=== PATIENT | male | born 1930 | race Caucasian/White ===

== ENCOUNTER → 2017-01-24 | Outpatient (CLI) | payer OTHER ==
[~2017-01-24] MED LIST: ATEN50TA; HYDR12.56; TAM04C PO
== END | disposition home or self-care (01) ==
LOC: XYW 09:42
PROVIDERS: ATTEND Family Medicine
DX: I25.10 Atherosclerotic heart disease of native coronary artery without angina pectoris (principal); I10 Essential (primary) hypertension
CPT/HCPCS: 93886

== ENCOUNTER → 2017-03-20 | Outpatient (CLI) | payer OTHER ==
[2017-03-20 08:50] LABS: Albumin 3.9 g/dL (3.4-5.0); BUN/Creatinine Ratio 22.6; Bilirubin, Total 0.7 mg/dL (0.2-1.0); Calcium 8.9 mg/dL (8.5-10.1); Potassium 3.9 mmol/L (3.5-5.1); Total Protein 7.6 g/dL (6.4-8.2)
[2017-03-20 09:07] LABS: Urine Bilirubin Negative (Negative); Urine Blood 2+ /uL (Negative); Urine Color Yellow (Yellow); Urine Glucose Normal (Normal); Urine Ketone Negative (Negative); Urine Mucus FEW (None Seen); Urine Nitrite Negative (Negative); Urine RBC 38 /hpf (0 - 3); Urine Urobilinogen Normal (Negative); Urine WBC Clumps PRESENT /hpf (None Seen)
== END | disposition home or self-care (01) ==
LOC: LAB 07:12
PROVIDERS: ATTEND Internal Medicine
DX: I12.9 Hypertensive chronic kidney disease with stage 1 through stage 4 chronic kidney disease, or unspecified chronic kidney disease (principal); N18.3 Chronic kidney disease, stage 3 (moderate); Z68.28 Body mass index [BMI] 28.0-28.9, adult; Z79.899 Other long term (current) drug therapy
CPT/HCPCS: 36415; 80053; 80061; 81001; 83036; 84153; 84443; 86141

== ENCOUNTER 2018-07-15 08:03 | Day surgery (SDC) | payer OTHER ==
[2018-07-11 09:57] LABS: Basophils # (auto) 0 uL; Basophils % (auto) 0.8 % (0.0-2.0); Eosinophils # (auto) 0.1 uL; Eosinophils % (auto) 2.6 % (0.0-7.0); Hematocrit 39.6 % (41.0-53.0); Hemoglobin 13.1 g/dL (13.5-17.5); Lymphocytes # (auto) 0.8 uL; Lymphocytes % (auto) 16.1 % (10.0-50.0); Mean Corpuscular Hemoglobin 29.4 pg (28.0-32.0); Mean Corpuscular Hgb Conc. 33.1 g/dL (32.0-36.0); Monocytes # (auto) 0.4 uL; Monocytes % (auto) 8.5 % (0.0-12.0); Neutrophils # (auto) 3.7 uL; Platelet Count (auto) 217 10^3/uL (140-450); Red Blood Cells 4.44 10^6/uL (4.5-5.90); White Blood Cell 5.1 10^3/uL (4.4-10.8)
[2018-07-11 14:23] LABS: Partial Thromboplastin Time 28.9 sec (23.78-33.04); Prothrombin Time 10.7 sec (9.27-12.13)
[~2018-07-15] VITALS: Ht 177.8 cm; Wt 86.2 kg
[~2018-07-15 08:03] MED LIST changes: +ATEN50TA PO; +DICL1GEL26 TOP; -HYDR12.56; +HYDR12.56 PO
[2018-07-15] MEDS ORDERED: SODIUM CHLORIDE LOCK 10 ML ONE (08:50)
[2018-07-15] MEDS ORDERED: LIDOCAINE VISCOUS 2% 15ML UD ONE (08:50)
[2018-07-15] MEDS ORDERED: NALOXONE HCL 0.4 MG/ML VIAL ONE (08:50)
[2018-07-15] MEDS ORDERED: FLUMAZENIL 0.1 MG/ML INJ 10ML MDV IV ONE (08:50)
[2018-07-15] MEDS ORDERED: diphenhdrAMINE HCL 50 MG/1 ML VL ONE (08:51)
[2018-07-15] MEDS ORDERED: MIDAZOLAM HCL 5 MG/ML-1ML VIAL ONE (08:51)
[2018-07-15] MEDS ORDERED: fentaNYL CITRATE 100 MCG/2 ML VL ONE (08:51)
[2018-07-15 09:59] VITALS: BP 142/68
== END 2018-07-15 10:10 | disposition home or self-care (01) ==
LOC: GI 08:03
PROVIDERS: ATTEND Internal Medicine Gastroenterology
DX: K29.60 Other gastritis without bleeding (principal); I10 Essential (primary) hypertension; Z87.442 Personal history of urinary calculi; Z88.8 Allergy status to other drugs, medicaments and biological substances; Z88.1 Allergy status to other antibiotic agents; Z88.2 Allergy status to sulfonamides; Z68.27 Body mass index [BMI] 27.0-27.9, adult; Z79.899 Other long term (current) drug therapy
CPT/HCPCS: 36415; 43239; 85025; 85610; 85730; A6257; J2250; J3010; J7030

== ENCOUNTER → 2018-10-03 | Outpatient (CLI) | payer OTHER ==
[~2018-10-03] MED LIST changes: +ACET-1158 PO; -ATEN50TA; -ATEN50TA PO; +BACL10TA PO; -DICL1GEL26 TOP; +HCTZ25T PO; -HYDR12.56 PO; +IBUP-1678 PO; +METO25TA62 PO; +MULT-228 PO; +PANT40T PO
== END | disposition home or self-care (01) ==
LOC: XYW 09:06
PROVIDERS: ATTEND Family Medicine
DX: R55 Syncope and collapse (principal); R42 Dizziness and giddiness
CPT/HCPCS: 93886

== ENCOUNTER → 2018-11-11 | Outpatient (CLI) | payer OTHER ==
[2018-11-11 08:44] LABS: Basophils # (auto) 0 uL; Basophils % (auto) 0.6 % (0.0-2.0); Eosinophils # (auto) 0.2 uL; Eosinophils % (auto) 4.3 % (0.0-7.0); Hematocrit 40.4 % (41.0-53.0); Hemoglobin 13.4 g/dL (13.5-17.5); Lymphocytes # (auto) 1.2 uL; Lymphocytes % (auto) 25.9 % (10.0-50.0); Mean Corpuscular Hemoglobin 29.4 pg (28.0-32.0); Mean Corpuscular Hgb Conc. 33.1 g/dL (32.0-36.0); Mean Corpuscular Volume 88.8 fL (80.0-100.0); Monocytes # (auto) 0.4 uL; Monocytes % (auto) 9.4 % (0.0-12.0); Neutrophils # (auto) 2.8 uL; Neutrophils % (auto) 59.8 % (37.0-80.0); Nucleated Red Blood Cells % 0.1 %; Platelet Count (auto) 178 10^3/uL (140-450); Red Blood Cells 4.54 10^6/uL (4.5-5.90); Red Cell Distribution Width 15.2 % (11.8-14.3); White Blood Cell 4.7 10^3/uL (4.4-10.8)
[2018-11-11 09:05] LABS: Albumin 3.4 g/dL (3.4-5.0); Calcium 8.4 mg/dL (8.5-10.1); Magnesium 1.9 mg/dL (1.6-2.6); Potassium 4.3 mmol/L (3.5-5.1)
[2018-11-11 09:10] LABS: BUN/Creatinine Ratio 17.3; Bilirubin, Total 0.6 mg/dL (0.2-1.0); Total Protein 6.8 g/dL (6.4-8.2)
[2018-11-11 09:13] LABS: Free T4 (Free Thyroxine) 0.96 ng/dL (0.89-1.76)
[2018-11-11 09:14] LABS: Follicle Stimulating Hormone 10.76 IU/L (1.4-18.1)
== END | disposition home or self-care (01) ==
LOC: LAB 07:40
PROVIDERS: ATTEND Internal Medicine
DX: I10 Essential (primary) hypertension (principal)
CPT/HCPCS: 36415; 80053; 80061; 82607; 83001; 83735; 84402; 84403; 84439; 84443; 85025

== ENCOUNTER → 2018-12-04 | Outpatient (CLI) | payer OTHER ==
[2018-12-04 10:28] LABS: Folate (Folic Acid) 13.64 ng/mL (5.38-24)
== END | disposition home or self-care (01) ==
LOC: LAB 09:05
PROVIDERS: ATTEND Nurse Practitioner
DX: E53.8 Deficiency of other specified B group vitamins (principal); R79.89 Other specified abnormal findings of blood chemistry
CPT/HCPCS: 36415; 82607; 82746; 84403

== ENCOUNTER → 2019-02-18 | Outpatient (CLI) | payer OTHER | END | disposition home or self-care (01) | LOC: XY 07:51 | PROVIDERS: ATTEND Internal Medicine | DX: I70.211 Atherosclerosis of native arteries of extremities with intermittent claudication, right leg (principal); Z87.891 Personal history of nicotine dependence; Z88.1 Allergy status to other antibiotic agents; Z88.8 Allergy status to other drugs, medicaments and biological substances; Z98.890 Other specified postprocedural states; Z83.3 Family history of diabetes mellitus; Z82.61 Family history of arthritis; Z82.49 Family history of ischemic heart disease and other diseases of the circulatory system; Z80.3 Family history of malignant neoplasm of breast; Z82.3 Family history of stroke; Z80.6 Family history of leukemia | CPT/HCPCS: 93925 ==

== ENCOUNTER → 2019-03-12 | Outpatient (CLI) | payer OTHER ==
[~2019-03-12] VITALS: Ht 177.8 cm; Wt 86.2 kg
[~2019-03-12] MED LIST changes: +ADENOSINE 72 MG in GIVE UN-DILUTED 0 ML IV STA
== END | disposition home or self-care (01) ==
LOC: XY 07:00
PROVIDERS: ATTEND Internal Medicine
DX: I08.3 Combined rheumatic disorders of mitral, aortic and tricuspid valves (principal); I12.9 Hypertensive chronic kidney disease with stage 1 through stage 4 chronic kidney disease, or unspecified chronic kidney disease; N18.3 Chronic kidney disease, stage 3 (moderate)
CPT/HCPCS: 78452; 93017; 93306; A9500; J0153

== ENCOUNTER → 2019-05-28 | Outpatient (CLI) | payer OTHER ==
[~2019-05-28] MED LIST changes: -ADENOSINE 72 MG in GIVE UN-DILUTED 0 ML IV STA; -METO25TA62 PO; +METO25TA93 PO
[2019-05-28 08:30] LABS: Basophils # (auto) 0 uL; Basophils % (auto) 1.1 % (0.0-2.0); Eosinophils # (auto) 0.1 uL; Eosinophils % (auto) 3.8 % (0.0-7.0); Hematocrit 40.5 % (41.0-53.0); Hemoglobin 13.6 g/dL (13.5-17.5); Lymphocytes % (auto) 26.9 % (10.0-50.0); Mean Corpuscular Hemoglobin 30.3 pg (28.0-32.0); Mean Corpuscular Hgb Conc. 33.6 g/dL (32.0-36.0); Mean Corpuscular Volume 90.2 fL (80.0-100.0); Monocytes # (auto) 0.4 uL; Neutrophils % (auto) 56.2 % (37.0-80.0); Platelet Count (auto) 166 10^3/uL (140-450); Red Blood Cells 4.49 10^6/uL (4.5-5.90); Red Cell Distribution Width 14.8 % (11.8-14.3); White Blood Cell 3.6 10^3/uL (4.4-10.8)
[2019-05-28 08:47] LABS: Urine Bacteria MOD /hpf (None Seen); Urine Blood 2+ /uL (Negative); Urine Specific Gravity 1.018 (1.001-1.035); Urine WBC 3889 /hpf (0 - 3); Urine WBC Clumps PRESENT /hpf (None Seen)
[2019-05-28 09:05] LABS: Potassium 4.3 mmol/L (3.5-5.1)
[2019-05-28 09:15] LABS: Albumin 3.6 g/dL (3.4-5.0); BUN/Creatinine Ratio 19.6; Bilirubin, Total 0.6 mg/dL (0.2-1.0); Calcium 9.2 mg/dL (8.5-10.1); Total Protein 7.2 g/dL (6.4-8.2)
== END | disposition home or self-care (01) ==
LOC: LAB 07:55
PROVIDERS: ATTEND Nurse Practitioner
DX: Z00.00 Encounter for general adult medical examination without abnormal findings (principal); E78.5 Hyperlipidemia, unspecified
CPT/HCPCS: 36415; 80053; 80061; 81001; 84443; 85025

== ENCOUNTER → 2019-10-16 | Outpatient (CLI) | payer MEDICARE | END | disposition home or self-care (01) | LOC: XY 10:34 | PROVIDERS: ATTEND Internal Medicine | DX: I70.203 Unspecified atherosclerosis of native arteries of extremities, bilateral legs (principal); I10 Essential (primary) hypertension; M71.22 Synovial cyst of popliteal space [Baker], left knee | CPT/HCPCS: 93925 ==

== ENCOUNTER 2020-01-14 07:46 | Inpatient (IN) | payer OTHER ==
[2020-01-08 10:20] LABS: Basophils # (auto) 0 10 ^3/uL (0-0.2); Basophils % (auto) 0.5 % (0.0-2.0); Eosinophils # (auto) 0.1 10 ^3/uL (0-0.8); Hematocrit 37.5 % (41.0-53.0); Hemoglobin 12.8 g/dL (13.5-17.5); Lymphocytes # (auto) 0.8 10 ^3/uL (0.4-5.4); Lymphocytes % (auto) 12.7 % (10.0-50.0); Mean Corpuscular Hgb Conc. 34.2 g/dL (32.0-36.0); Mean Corpuscular Volume 90.4 fL (80.0-100.0); Monocytes # (auto) 0.6 10 ^3/uL (0-1.3); Monocytes % (auto) 9.3 % (0.0-12.0); Neutrophils # (auto) 4.7 10 ^3/uL (1.6-8.6); Neutrophils % (auto) 76.5 % (37.0-80.0); Nucleated Red Blood Cells % 0.1 %; Platelet Count (auto) 153 10^3/uL (140-450); Red Blood Cells 4.15 10^6/uL (4.5-5.90); Red Cell Distribution Width 14.4 % (11.8-14.3); White Blood Cell 6.2 10^3/uL (4.4-10.8)
[2020-01-08 10:30] LABS: Albumin 3.7 g/dL (3.4-5.0); Calcium 8.7 mg/dL (8.5-10.1); Potassium 4.2 mmol/L (3.5-5.1)
[2020-01-08 10:32] LABS: INR 1.07 (0.9-1.15); Partial Thromboplastin Time 28.1 sec (23.0-31.2)
[2020-01-08 10:34] LABS: BUN/Creatinine Ratio 18.5; Bilirubin, Total 0.8 mg/dL (0.2-1.0)
[~2020-01-14] VITALS: Ht 180.3 cm; Wt 86.3 kg
[~2020-01-14 07:46] MED LIST changes: +ATO40T PO; -BACL10TA PO; -HCTZ25T PO; +HYDR12.56 PO; +MET50T PO; -METO25TA93 PO; -PANT40T PO; +PANT40TA2 PO
[2020-01-14] MEDS ORDERED: IODIXANOL 320MG/ML 100ML BTL IV ONE ×5 (08:59→15:45)
[2020-01-14] MEDS ORDERED: LIDOCAINE 2%HCL (LOCAL ANESTH.) INJ 20ML MDV ONE ×2 (08:59→14:40)
[2020-01-14] MEDS ORDERED: VERAPAMIL 2.5MG/ML INJ 2ML VIAL IV ONE (09:58)
[2020-01-14] MEDS ORDERED: ANGIOMAX 250 MG VIAL IV ONE ×3 (09:58→15:35)
[2020-01-14] MEDS ORDERED: fentaNYL CITRATE 100 MCG/2 ML VL ONE ×2 (09:58→14:40)
[2020-01-14] MEDS ORDERED: HEPARIN SODIUM (PORCINE) 5000 UNITS/ML 1ML VIAL ONE (09:59)
[2020-01-14] MEDS ORDERED: MIDAZOLAM HCL 1MG/1ML-2 ML VIAL ONE ×2 (09:59→14:40)
[2020-01-14] MEDS ORDERED: SODIUM CHL 0.9% 50 ML ONE ×3 (09:59→15:35)
[2020-01-14] MEDS ORDERED: MORPHINE SULF INJ 2 MG/ML SYRINGE 1ML IV PRN (11:15)
[2020-01-14] MEDS ORDERED: ONDANSETRON HCL 4 MG/2 ML VIAL IV PRN (11:15)
[2020-01-14] MEDS ORDERED: NITROGLYCERIN 0.4 MG SL TAB SL PRN (11:15)
[2020-01-14] MEDS ORDERED: diphenhdrAMINE HCL 50 MG/1 ML VL ONE (14:39)
[2020-01-14] MEDS ORDERED: TICAGRELOR 90 MG TAB ONE (16:17)
[2020-01-14] MEDS ORDERED: ACETAMINOPHEN 500 MG TAB PO PRN ×2 (16:45→17:00)
[2020-01-14] MEDS ORDERED: IBUPROFEN 400 MG TAB PO PRN (17:00)
[2020-01-14 17:42] VITALS: BP 140/78
[2020-01-14] MEDS ORDERED: TAMSULOSIN HYDROCHLORIDE 0.4 MG CAP PO SCH (18:00)
[2020-01-14 20:00] VITALS: BP 131/69
[2020-01-14 22:00] VITALS: BP 131/69
[2020-01-14] MEDS ORDERED: ATORVASTATIN 20 MG TAB PO SCH (22:00)
[2020-01-14] MEDS ORDERED: FAMOTIDINE 20 MG TAB PO SCH (22:00)
[2020-01-15 04:59] VITALS: BP 162/85
[2020-01-15] MEDS ORDERED: METOPROLOL TARTRATE 50 MG TAB PO SCH (07:00)
[2020-01-15] MEDS ORDERED: MULTIPLE VITAMIN TAB PO SCH (10:00)
[2020-01-15] MEDS ORDERED: HCTZ 25 MG TAB PO SCH (10:00)
[2020-01-15] MEDS ORDERED: TICAGRELOR 90 MG TAB PO SCH (10:00)
[2020-01-15] MEDS ORDERED: LISINOPRIL 5 MG TAB PO ONE (10:30)
[2020-01-15] MEDS ORDERED: TICA90TA PO (10:32)
[2020-01-15] MEDS ORDERED: LISI-275 PO (10:46)
[2020-01-15 15:25] VITALS: BP 135/75
[2020-01-15] MEDS ORDERED: TAMS0.4C36 PO (15:54)
[2020-01-16] MEDS ORDERED: LISINOPRIL 5 MG TAB PO SCH (10:00)
== END 2020-01-15 15:50 | disposition home or self-care (01) | DRG 246 ==
LOC: CATH 07:46 → TELE-CENTR 07:47
PROVIDERS: ADMIT Internal Medicine; ATTEND Internal Medicine
PROC: 027137Z Dilation of Coronary Artery, Two Arteries with Four or More Drug-eluting Intraluminal Devices, Percutaneous Approach (ICD-10-PCS; principal; 2020-01-14)
PROC: 4A023N7 Measurement of Cardiac Sampling and Pressure, Left Heart, Percutaneous Approach (ICD-10-PCS; 2020-01-14)
PROC: B211YZZ Fluoroscopy of Multiple Coronary Arteries using Other Contrast (ICD-10-PCS; 2020-01-14)
PROC: B215YZZ Fluoroscopy of Left Heart using Other Contrast (ICD-10-PCS; 2020-01-14)
DX: T82.855A Stenosis of coronary artery stent, initial encounter (principal); N40.0 Benign prostatic hyperplasia without lower urinary tract symptoms; I25.10 Atherosclerotic heart disease of native coronary artery without angina pectoris; E78.5 Hyperlipidemia, unspecified; I10 Essential (primary) hypertension; Z20.828 Contact with and (suspected) exposure to other viral communicable diseases; Y84.0 Cardiac catheterization as the cause of abnormal reaction of the patient, or of later complication, without mention of misadventure at the time of the procedure; Z88.1 Allergy status to other antibiotic agents; Z88.2 Allergy status to sulfonamides; Z88.8 Allergy status to other drugs, medicaments and biological substances; Y92.89 Other specified places as the place of occurrence of the external cause; Z87.891 Personal history of nicotine dependence; Z88.5 Allergy status to narcotic agent
CPT/HCPCS: 36415; 80053; 82565; 85025; 85610; 85730; 99152; 99153; C1874; C1887; G0378; J2250; Q9967

== ENCOUNTER → 2020-01-22 | Outpatient (CLI) | payer OTHER ==
[~2020-01-22] MED LIST changes: +LISI-275 PO; +TICA90TA PO
[2020-01-22 09:58] LABS: BUN/Creatinine Ratio 20.3; Potassium 3.8 mmol/L (3.5-5.1)
== END | disposition home or self-care (01) ==
LOC: LAB 09:30
PROVIDERS: ATTEND Internal Medicine
DX: I10 Essential (primary) hypertension (principal)
CPT/HCPCS: 36415; 80048

== ENCOUNTER → 2020-02-12 | Outpatient (CLI) | payer OTHER | END | disposition home or self-care (01) | LOC: XY 16:27 | PROVIDERS: ATTEND Internal Medicine | DX: R42 Dizziness and giddiness (principal) | CPT/HCPCS: 93886 ==

== ENCOUNTER 2020-03-16 06:53 | Emergency (ER) | payer OTHER ==
[~2020-03-16] VITALS: Ht 177.8 cm; Wt 81.6 kg
[2020-03-16] MEDS ORDERED: ACETAMINOPHEN 500 MG TAB PO ONE (07:45)
[2020-03-16] MEDS ORDERED: METHOCARBAMOL 500 MG TAB PO ONE (07:45)
[2020-03-16] MEDS ORDERED: methylPREDNISolone SOD SUCC 125 MG/2 ML VL IM ONE (07:45)
[2020-03-16 08:56] VITALS: BP 165/65
== END 2020-03-16 09:13 | disposition home or self-care (01) ==
LOC: ER 06:53
DX: M25.561 Pain in right knee (principal); M25.562 Pain in left knee; M54.5 Low back pain; I10 Essential (primary) hypertension; Z87.891 Personal history of nicotine dependence; Z79.899 Other long term (current) drug therapy; Z88.1 Allergy status to other antibiotic agents; Z88.2 Allergy status to sulfonamides; Z88.5 Allergy status to narcotic agent; W19.XXXA Unspecified fall, initial encounter; Y93.89 Activity, other specified; Y92.89 Other specified places as the place of occurrence of the external cause; Y99.8 Other external cause status
CPT/HCPCS: 72100; 73562; 96372; 99284; J2930

== ENCOUNTER → 2020-04-02 | Outpatient (CLI) | payer OTHER ==
[2020-04-02 10:25] LABS: Potassium 4.3 mmol/L (3.5-5.1)
== END | disposition home or self-care (01) ==
LOC: LAB 09:53
PROVIDERS: ATTEND Student in an Organized Health Care Education/Training Program
DX: I10 Essential (primary) hypertension (principal); R73.03 Prediabetes; N17.9 Acute kidney failure, unspecified; E03.9 Hypothyroidism, unspecified
CPT/HCPCS: 36415; 80048; 83036; 84443

== ENCOUNTER 2020-04-09 12:33 | Inpatient (IN) | payer OTHER ==
[~2020-04-09] VITALS: Ht 177.8 cm; Wt 76.3 kg
[2020-04-09 13:52] LABS: Basophils # (auto) 0 10 ^3/uL (0-0.2); Basophils % (auto) 0.2 % (0.0-2.0); Eosinophils # (auto) 0 10 ^3/uL (0-0.8); Eosinophils % (auto) 0.1 % (0.0-7.0); Hematocrit 37.8 % (41.0-53.0); Hemoglobin 13.1 g/dL (13.5-17.5); Lymphocytes # (auto) 0.4 10 ^3/uL (0.4-5.4); Lymphocytes % (auto) 16.5 % (10.0-50.0); Mean Corpuscular Hemoglobin 30.6 pg (28.0-32.0); Mean Corpuscular Hgb Conc. 34.6 g/dL (32.0-36.0); Mean Corpuscular Volume 88.4 fL (80.0-100.0); Monocytes # (auto) 0.4 10 ^3/uL (0-1.3); Monocytes % (auto) 14.5 % (0.0-12.0); Neutrophils # (auto) 1.7 10 ^3/uL (1.6-8.6); Neutrophils % (auto) 68.7 % (37.0-80.0); Nucleated Red Blood Cells % 0.5 %; Platelet Count (auto) 142 10^3/uL (140-450); Red Blood Cells 4.27 10^6/uL (4.5-5.90); Red Cell Distribution Width 14.7 % (11.8-14.3); White Blood Cell 2.5 10^3/uL (4.4-10.8)
[2020-04-09 14:05] LABS: INR 1.05 (0.9-1.15); Partial Thromboplastin Time 30.8 sec (23.0-31.2)
[2020-04-09 14:12] LABS: Albumin 3.2 g/dL (3.4-5.0); BUN/Creatinine Ratio 26.6; Calcium 8.6 mg/dL (8.5-10.1); Potassium 3.9 mmol/L (3.5-5.1)
[2020-04-09 14:16] LABS: Bilirubin, Total 0.6 mg/dL (0.2-1.0); Total Protein 7.6 g/dL (6.4-8.2)
[2020-04-09] MEDS ORDERED: AZITHROMYCIN 500MG/ 250ML 250 ML IV ONE (16:00)
[2020-04-09] MEDS ORDERED: SODIUM CHLORIDE 0.9% 1,000 ML IVB ONE (16:00)
[2020-04-09] MEDS ORDERED: ZINC SULFATE 220mg CAP or TAB PO ONE (16:00)
[2020-04-09] MEDS ORDERED: DexAMETHasone SOD PHOS 10MG/1ML VIAL INJ IV ONE (16:00)
[2020-04-09] MEDS ORDERED: MORPHINE SULF INJ 2 MG/ML SYRINGE 1ML IV PRN ×3 (17:45→18:30)
[2020-04-09] MEDS ORDERED: NITROGLYCERIN 0.4 MG SL TAB SL PRN ×2 (17:45→18:30)
[2020-04-09] MEDS ORDERED: CEFEPIME 1 GM in SODIUM CHL 0.9% 50 ML IV ONE (18:30)
[2020-04-09] MEDS ORDERED: ATORVASTATIN 20 MG TAB PO ONE (18:30)
[2020-04-09] MEDS ORDERED: ALUM & MAG HYDROX-SIMETH LIQ(MAALOX) 30 ML PO PRN (18:30)
[2020-04-09] MEDS ORDERED: DOCUSATE SOD 100 MG CAP PO PRN (18:30)
[2020-04-09] MEDS ORDERED: REMDESIVIR PER PHARMACY 0 ML IV SCH (18:30)
[2020-04-09] MEDS ORDERED: HYDROcodone-ACET 5/325MG TAB PO PRN (18:30)
[2020-04-09] MEDS ORDERED: METOPROLOL SUCCINATE XL 50 MG TAB PO ONE (18:45)
[2020-04-09] MEDS ORDERED: SODIUM CHLORIDE 0.9% 1,000 ML IV SCH (18:45)
[2020-04-09 19:18] LABS: Calcium 8.6 mg/dL (8.5-10.1); Magnesium 1.8 mg/dL (1.6-2.6); Potassium 3.9 mmol/L (3.5-5.1)
[2020-04-09 19:22] LABS: Bilirubin, Total 0.5 mg/dL (0.2-1.0); Total Protein 7.7 g/dL (6.4-8.2)
[2020-04-09 19:23] LABS: Cholesterol 138 mg/dL (< 200); Triglycerides 144 mg/dL (< 150)
[2020-04-09 19:26] LABS: HDL Cholesterol 37 mg/dL (40-59); LDL Cholesterol 75 mg/dL (< 100)
[2020-04-09 19:49] LABS: BUN/Creatinine Ratio 28.1; CRP High Sensitivity 7.56 mg/dL (< 0.3)
[2020-04-10] MEDS: ENOXAPARIN SOD 40 MG/0.4 ML SYRINGE SC SCH ×3 (01:24→22:20)
[2020-04-10] MEDS: TICAGRELOR 90 MG TAB PO SCH ×3 (01:24→22:20)
[2020-04-10] MEDS: SUCRALFATE 1 GM/10 ML ORAL SUSP PO SCH ×5 (01:24→22:20)
[2020-04-10] MEDS: FAMOTIDINE (10MG/ML) 2ML VL IV SCH ×2 (01:24→10:00)
[2020-04-10] MEDS: ACETAMINOPHEN 500 MG TAB PO PRN ×2 (03:14→11:24)
[2020-04-10] MEDS: MORPHINE SULF INJ 2 MG/ML SYRINGE 1ML IV PRN (06:06)
[2020-04-10 07:21] LABS: Basophils # (auto) 0 10 ^3/uL (0-0.2); Basophils % (auto) 0.2 % (0.0-2.0); Eosinophils # (auto) 0 10 ^3/uL (0-0.8); Hematocrit 38.9 % (41.0-53.0); Hemoglobin 13.4 g/dL (13.5-17.5); Lymphocytes # (auto) 0.3 10 ^3/uL (0.4-5.4); Lymphocytes % (auto) 16.1 % (10.0-50.0); Mean Corpuscular Hemoglobin 30.4 pg (28.0-32.0); Mean Corpuscular Hgb Conc. 34.6 g/dL (32.0-36.0); Monocytes # (auto) 0.3 10 ^3/uL (0-1.3); Monocytes % (auto) 15.4 % (0.0-12.0); Neutrophils # (auto) 1.4 10 ^3/uL (1.6-8.6); Neutrophils % (auto) 68.3 % (37.0-80.0); Nucleated Red Blood Cells % 0.8 %; Platelet Count (auto) 155 10^3/uL (140-450); Red Blood Cells 4.42 10^6/uL (4.5-5.90); Red Cell Distribution Width 14.7 % (11.8-14.3)
[2020-04-10 07:43] LABS: Calcium 9.7 mg/dL (8.5-10.1); Potassium 4.3 mmol/L (3.5-5.1)
[2020-04-10 07:47] LABS: BUN/Creatinine Ratio 35.6; Bilirubin, Total 0.6 mg/dL (0.2-1.0); Total Protein 7.9 g/dL (6.4-8.2)
[2020-04-10] MEDS: ZINC SULFATE 220mg CAP or TAB PO SCH (10:00)
[2020-04-10] MEDS: ASPirin 81 mg TAB PO SCH (10:00)
[2020-04-10] MEDS: CEFEPIME 1 GM in SODIUM CHL 0.9% 50 ML IV SCH ×2 (10:00→22:21)
[2020-04-10] MEDS: TAMSULOSIN HYDROCHLORIDE 0.4 MG CAP PO SCH (10:00)
[2020-04-10] MEDS: LISINOPRIL 5 MG TAB PO SCH (10:00)
[2020-04-10] MEDS: DexAMETHasone SOD PHOS 10MG/1ML VIAL INJ IV SCH (10:00)
[2020-04-10] MEDS: CHOLECALCIFEROL (VITD3) 2,000 UNIT CAP PO SCH (10:00)
[2020-04-10] MEDS: ASCORBIC ACID 1,000 MG TAB PO SCH (10:00)
[2020-04-10] MEDS: METOPROLOL SUCCINATE XL 50 MG TAB PO SCH (10:00)
[2020-04-10] MEDS: ONDANSETRON HCL 4 MG/2 ML VIAL IV PRN (12:56)
[2020-04-10] MEDS ORDERED: REMDESIVIR 200 MG in NS 210ml LOADING DOSE ADULT IV ONE (15:00)
[2020-04-10] MEDS: BUDESONIDE (INHALATION) 180 MCG IH IN SCH ×2 (16:02→22:00)
[2020-04-10 18:28] VITALS: BP 118/73
[2020-04-10] MEDS ORDERED: FUROSEMIDE 40 MG/4 ML VIAL IV ONE (21:15)
[2020-04-10 21:17] LABS: Urine Bacteria FEW /hpf (None Seen); Urine Blood 3+ /uL (Negative); Urine Mucus MODERATE (None Seen); Urine Specific Gravity 1.016 (1.001-1.035); Urine WBC 163 /hpf (0 - 3)
[2020-04-10 21:49] LABS: Alcohol, Urine < 3.0 mg/dL (0-10); Amphetamine Screen, Urine NEGATIVE (NEGATIVE); Barbiturate Scree,Urine NEGATIVE (NEGATIVE); Benzodiazephine Screen, Urine NEGATIVE (NEGATIVE); Cannabinoid Screen, Urine NEGATIVE (NEGATIVE); Cocaine Screen, Urine NEGATIVE (NEGATIVE); Opiate Scree,Urine NEGATIVE (NEGATIVE); Phencyclidine Screen, Urine NEGATIVE (NEGATIVE)
[2020-04-10] MEDS ORDERED: ATORVASTATIN 20 MG TAB PO SCH (22:00)
[2020-04-10] MEDS: ATORVASTATIN 20 MG TAB PO SCH (22:20)
[2020-04-11] VITALS (8 sets, daily range): BP systolic 90–110; BP diastolic 59–97
[2020-04-11] MEDS: LORazepam 0.5 MG TAB PO PRN ×2 (01:45→20:55)
[2020-04-11] MEDS: MORPHINE SULF INJ 2 MG/ML SYRINGE 1ML IV PRN ×2 (01:49→20:55)
[2020-04-11] MEDS: SUCRALFATE 1 GM/10 ML ORAL SUSP PO SCH ×4 (06:08→20:54)
[2020-04-11 06:52] LABS: Calcium 9.4 mg/dL (8.5-10.1); Potassium 3.8 mmol/L (3.5-5.1)
[2020-04-11 06:54] LABS: BUN/Creatinine Ratio 39.7
[2020-04-11] MEDS: CHOLECALCIFEROL (VITD3) 2,000 UNIT CAP PO SCH (09:47)
[2020-04-11] MEDS: ZINC SULFATE 220mg CAP or TAB PO SCH (09:48)
[2020-04-11] MEDS: LISINOPRIL 5 MG TAB PO SCH (09:48)
[2020-04-11] MEDS: TAMSULOSIN HYDROCHLORIDE 0.4 MG CAP PO SCH (09:48)
[2020-04-11] MEDS: ASCORBIC ACID 1,000 MG TAB PO SCH (09:48)
[2020-04-11] MEDS: ATORVASTATIN 20 MG TAB PO SCH ×2 (09:48→20:55)
[2020-04-11] MEDS: METOPROLOL SUCCINATE XL 50 MG TAB PO SCH (09:50)
[2020-04-11] MEDS: FAMOTIDINE (10MG/ML) 2ML VL IV SCH (09:50)
[2020-04-11] MEDS: DexAMETHasone SOD PHOS 10MG/1ML VIAL INJ IV SCH (09:50)
[2020-04-11] MEDS: ENOXAPARIN SOD 40 MG/0.4 ML SYRINGE SC SCH (10:00)
[2020-04-11] MEDS ORDERED: AZITHROMYCIN 250 MG TAB PO ONE (10:00)
[2020-04-11] MEDS: ASPirin 81 mg TAB PO SCH (10:00)
[2020-04-11] MEDS: TICAGRELOR 90 MG TAB PO SCH ×2 (10:00→20:54)
[2020-04-11] MEDS ORDERED: FUROSEMIDE 40 MG/4 ML VIAL IV SCH (10:00)
[2020-04-11] MEDS: CEFEPIME 1 GM in SODIUM CHL 0.9% 50 ML IV SCH ×2 (10:16→20:54)
[2020-04-11] MEDS ORDERED: TAMSULOSIN HYDROCHLORIDE 0.4 MG CAP PO ONE (11:30)
[2020-04-11] MEDS: BUDESONIDE (INHALATION) 180 MCG IH IN SCH ×2 (11:47→20:29)
[2020-04-11 15:08] LABS: Creatinine, Urine 32 mg/dL (30.0-125.0); Sodium Urine 96 mmol/L (40-220)
[2020-04-11] MEDS: REMDESIVIR 100 MG in SODIUM CHL 0.9% 250 ML IV SCH (15:10)
[2020-04-12] VITALS: BP 104/54
[2020-04-12] MEDS ORDERED: TEMAZEPAM 15 MG CAP PO ONE (02:00)
[2020-04-12] MEDS: MORPHINE SULF INJ 2 MG/ML SYRINGE 1ML IV PRN (02:29)
[2020-04-12] MEDS: SUCRALFATE 1 GM/10 ML ORAL SUSP PO SCH ×4 (06:05→23:19)
[2020-04-12] MEDS: BUDESONIDE (INHALATION) 180 MCG IH IN SCH ×2 (07:22→22:00)
[2020-04-12 07:43] VITALS: BP 115/55
[2020-04-12 08:20] LABS: Basophils # (auto) 0 10 ^3/uL (0-0.2); Basophils % (auto) 0.5 % (0.0-2.0); Eosinophils # (auto) 0 10 ^3/uL (0-0.8); Hematocrit 39.5 % (41.0-53.0); Lymphocytes # (auto) 0.2 10 ^3/uL (0.4-5.4); Lymphocytes % (auto) 2.4 % (10.0-50.0); Mean Corpuscular Hemoglobin 29.1 pg (28.0-32.0); Mean Corpuscular Hgb Conc. 32.9 g/dL (32.0-36.0); Mean Corpuscular Volume 88.2 fL (80.0-100.0); Monocytes # (auto) 0.7 10 ^3/uL (0-1.3); Monocytes % (auto) 7.2 % (0.0-12.0); Neutrophils # (auto) 8.3 10 ^3/uL (1.6-8.6); Neutrophils % (auto) 89.9 % (37.0-80.0); Nucleated Red Blood Cells % 0.1 %; Platelet Count (auto) 217 10^3/uL (140-450); Red Blood Cells 4.48 10^6/uL (4.5-5.90); Red Cell Distribution Width 14.4 % (11.8-14.3); White Blood Cell 9.3 10^3/uL (4.4-10.8)
[2020-04-12 08:46] LABS: Calcium 9.4 mg/dL (8.5-10.1); Potassium 3.6 mmol/L (3.5-5.1)
[2020-04-12 08:55] LABS: BUN/Creatinine Ratio 39.5; CRP High Sensitivity 4.26 mg/dL (< 0.3)
[2020-04-12] MEDS: TICAGRELOR 90 MG TAB PO SCH ×2 (10:00→22:00)
[2020-04-12] MEDS: CEFEPIME 1 GM in SODIUM CHL 0.9% 50 ML IV SCH ×3 (10:00→23:19)
[2020-04-12] MEDS: METOPROLOL SUCCINATE XL 50 MG TAB PO SCH (10:00)
[2020-04-12] MEDS: ASCORBIC ACID 1,000 MG TAB PO SCH (11:39)
[2020-04-12] MEDS: FAMOTIDINE (10MG/ML) 2ML VL IV SCH (11:39)
[2020-04-12] MEDS: CHOLECALCIFEROL (VITD3) 2,000 UNIT CAP PO SCH (11:39)
[2020-04-12] MEDS: ZINC SULFATE 220mg CAP or TAB PO SCH (11:39)
[2020-04-12] MEDS: ASPirin 81 mg TAB PO SCH (11:39)
[2020-04-12] MEDS: AZITHROMYCIN 250 MG TAB PO SCH (11:40)
[2020-04-12] MEDS: DexAMETHasone SOD PHOS 10MG/1ML VIAL INJ IV SCH (11:40)
[2020-04-12] MEDS ORDERED: FUROSEMIDE 20 MG/2 ML VIAL IV ONE (12:00)
[2020-04-12] MEDS ORDERED: ENOXAPARIN SOD 40 MG/0.4 ML SYRINGE SC ONE (13:00)
[2020-04-12] MEDS: REMDESIVIR 100 MG in SODIUM CHL 0.9% 250 ML IV SCH (15:12)
[2020-04-12 15:13] LABS: Creatinine, Urine 102 mg/dL (30.0-125.0); Sodium Urine 45 mmol/L (40-220)
[2020-04-12 15:48] VITALS: BP 99/65
[2020-04-12] MEDS: TAMSULOSIN HYDROCHLORIDE 0.4 MG CAP PO SCH (17:50)
[2020-04-12] MEDS ORDERED: MAGNESIUM SULFATE 1GM/100ML 100 ML IV ONE (20:00)
[2020-04-12] MEDS: ATORVASTATIN 20 MG TAB PO SCH (23:19)
[2020-04-13] VITALS: BP 113/70
[2020-04-13] MEDS: ENOXAPARIN SOD 40 MG/0.4 ML SYRINGE SC SCH ×2 (00:01→09:39)
[2020-04-13] MEDS: SUCRALFATE 1 GM/10 ML ORAL SUSP PO SCH ×4 (05:53→22:10)
[2020-04-13] MEDS: CEFEPIME 1 GM in SODIUM CHL 0.9% 50 ML IV SCH ×2 (05:53→15:18)
[2020-04-13 06:11] LABS: Basophils # (auto) 0 10 ^3/uL (0-0.2); Basophils % (auto) 0.1 % (0.0-2.0); Eosinophils # (auto) 0 10 ^3/uL (0-0.8); Hemoglobin 12.9 g/dL (13.5-17.5); Lymphocytes # (auto) 0.2 10 ^3/uL (0.4-5.4); Lymphocytes % (auto) 3.3 % (10.0-50.0); Mean Corpuscular Hemoglobin 29.9 pg (28.0-32.0); Mean Corpuscular Hgb Conc. 33.9 g/dL (32.0-36.0); Mean Corpuscular Volume 88.2 fL (80.0-100.0); Monocytes # (auto) 0.6 10 ^3/uL (0-1.3); Monocytes % (auto) 8.6 % (0.0-12.0); Neutrophils # (auto) 6.5 10 ^3/uL (1.6-8.6); Platelet Count (auto) 202 10^3/uL (140-450); Red Blood Cells 4.31 10^6/uL (4.5-5.90); Red Cell Distribution Width 14.8 % (11.8-14.3); White Blood Cell 7.4 10^3/uL (4.4-10.8)
[2020-04-13] MEDS: BUDESONIDE (INHALATION) 180 MCG IH IN SCH ×2 (07:35→19:24)
[2020-04-13] MEDS: ALBUTEROL SULF HFA 90MCG INH 200DOSE IN PRN ×2 (07:35→19:24)
[2020-04-13 07:55] LABS: CRP High Sensitivity 5.82 mg/dL (< 0.3)
[2020-04-13 08:00] VITALS: BP 119/69
[2020-04-13 08:19] LABS: Magnesium 2.8 mg/dL (1.6-2.6)
[2020-04-13 08:32] LABS: Bilirubin, Total 0.4 mg/dL (0.2-1.0); Total Protein 7.4 g/dL (6.4-8.2)
[2020-04-13 08:40] LABS: Potassium 3.8 mmol/L (3.5-5.1)
[2020-04-13 08:41] LABS: BUN/Creatinine Ratio 51.1
[2020-04-13 08:42] LABS: Calcium 9.4 mg/dL (8.5-10.1)
[2020-04-13] MEDS: DexAMETHasone SOD PHOS 10MG/1ML VIAL INJ IV SCH (09:37)
[2020-04-13] MEDS: FAMOTIDINE (10MG/ML) 2ML VL IV SCH (09:37)
[2020-04-13] MEDS: TICAGRELOR 90 MG TAB PO SCH ×2 (09:38→22:10)
[2020-04-13] MEDS: AZITHROMYCIN 250 MG TAB PO SCH (09:39)
[2020-04-13] MEDS: ZINC SULFATE 220mg CAP or TAB PO SCH (10:00)
[2020-04-13] MEDS: ASPirin 81 mg TAB PO SCH (10:00)
[2020-04-13] MEDS: ASCORBIC ACID 1,000 MG TAB PO SCH (10:00)
[2020-04-13] MEDS: CHOLECALCIFEROL (VITD3) 2,000 UNIT CAP PO SCH (10:00)
[2020-04-13] MEDS: METOPROLOL SUCCINATE XL 50 MG TAB PO SCH (10:19)
[2020-04-13] MEDS: ONDANSETRON HCL 4 MG/2 ML VIAL IV PRN ×2 (11:42→22:43)
[2020-04-13] MEDS: SOD CHL 0.45% 1,000 ML IV SCH (11:42)
[2020-04-13] MEDS ORDERED: AMIODARONE HCL 200 MG TAB PO ONE (11:45)
[2020-04-13 16:00] VITALS: BP 101/62
[2020-04-13] MEDS: TAMSULOSIN HYDROCHLORIDE 0.4 MG CAP PO SCH (17:26)
[2020-04-13] MEDS: ATORVASTATIN 20 MG TAB PO SCH (22:10)
[2020-04-13] MEDS: AMIODARONE HCL 200 MG TAB PO SCH (22:10)
[2020-04-13] MEDS: METOPROLOL TARTRATE 25 MG TAB PO SCH (22:11)
[2020-04-14] VITALS: BP 113/64
[2020-04-14] MEDS: SOD CHL 0.45% 1,000 ML IV SCH (00:50)
[2020-04-14] MEDS: SUCRALFATE 1 GM/10 ML ORAL SUSP PO SCH ×4 (07:00→22:00)
[2020-04-14 07:28] LABS: Basophils # (auto) 0 10 ^3/uL (0-0.2); Eosinophils # (auto) 0 10 ^3/uL (0-0.8); Hematocrit 32.9 % (41.0-53.0); Hemoglobin 10.8 g/dL (13.5-17.5); Lymphocytes # (auto) 0.3 10 ^3/uL (0.4-5.4); Lymphocytes % (auto) 2.6 % (10.0-50.0); Mean Corpuscular Hgb Conc. 32.8 g/dL (32.0-36.0); Mean Corpuscular Volume 88.3 fL (80.0-100.0); Monocytes # (auto) 0.8 10 ^3/uL (0-1.3); Monocytes % (auto) 6.3 % (0.0-12.0); Neutrophils # (auto) 11.7 10 ^3/uL (1.6-8.6); Neutrophils % (auto) 91.1 % (37.0-80.0); Nucleated Red Blood Cells % 0.1 %; Platelet Count (auto) 248 10^3/uL (140-450); Red Blood Cells 3.73 10^6/uL (4.5-5.90); Red Cell Distribution Width 14.7 % (11.8-14.3); White Blood Cell 12.8 10^3/uL (4.4-10.8)
[2020-04-14 07:47] VITALS: BP 100/66
[2020-04-14 08:04] LABS: Calcium 9.2 mg/dL (8.5-10.1); Potassium 3.9 mmol/L (3.5-5.1)
[2020-04-14 08:15] LABS: BUN/Creatinine Ratio 63.6
[2020-04-14] MEDS: ENOXAPARIN SOD 40 MG/0.4 ML SYRINGE SC SCH (08:58)
[2020-04-14] MEDS: FAMOTIDINE (10MG/ML) 2ML VL IV SCH (08:58)
[2020-04-14] MEDS: DexAMETHasone SOD PHOS 10MG/1ML VIAL INJ IV SCH (08:58)
[2020-04-14] MEDS: CEFEPIME 1 GM in SODIUM CHL 0.9% 50 ML IV SCH (09:21)
[2020-04-14] MEDS: METOPROLOL TARTRATE 25 MG TAB PO SCH ×2 (10:00→22:00)
[2020-04-14] MEDS: CHOLECALCIFEROL (VITD3) 2,000 UNIT CAP PO SCH (10:00)
[2020-04-14] MEDS: ALBUTEROL SULF HFA 90MCG INH 200DOSE IN PRN ×2 (10:05→20:04)
[2020-04-14] MEDS: BUDESONIDE (INHALATION) 180 MCG IH IN SCH ×2 (10:05→20:04)
[2020-04-14] MEDS: AMIODARONE HCL 200 MG TAB PO SCH ×2 (10:41→22:00)
[2020-04-14] MEDS: AZITHROMYCIN 250 MG TAB PO SCH (10:42)
[2020-04-14] MEDS: ASCORBIC ACID 1,000 MG TAB PO SCH (10:42)
[2020-04-14] MEDS: PRASUGREL HCL 10 MG TAB PO SCH (10:42)
[2020-04-14] MEDS: ZINC SULFATE 220mg CAP or TAB PO SCH (10:42)
[2020-04-14] MEDS: SODIUM BICARBONATE 50ML VIAL 50 ML in D5W 5% 1,000 ML IV SCH ×2 (11:03→22:55)
[2020-04-14] MEDS ORDERED: LORazepam 2MG/ML-1ML VIAL IV PRN ×2 (11:30→17:00)
[2020-04-14] MEDS: HALOPERIDOL LACTATE 5 MG/ML INJ VIAL IM PRN (12:48)
[2020-04-14 16:00] VITALS: BP 135/62
[2020-04-14] MEDS: TAMSULOSIN HYDROCHLORIDE 0.4 MG CAP PO SCH (18:00)
[2020-04-14] MEDS: ATORVASTATIN 20 MG TAB PO SCH (22:00)
[2020-04-15] VITALS: BP 131/60
[2020-04-15] MEDS: HALOPERIDOL LACTATE 5 MG/ML INJ VIAL IM PRN (01:02)
[2020-04-15] MEDS: SODIUM BICARBONATE 50ML VIAL 50 ML in D5W 5% 1,000 ML IV SCH ×2 (05:35→16:13)
[2020-04-15] MEDS: SUCRALFATE 1 GM/10 ML ORAL SUSP PO SCH ×4 (06:43→22:00)
[2020-04-15 08:00] VITALS: BP 124/59
[2020-04-15] MEDS: ZINC SULFATE 220mg CAP or TAB PO SCH (10:00)
[2020-04-15] MEDS: BUDESONIDE (INHALATION) 180 MCG IH IN SCH ×2 (10:00→20:47)
[2020-04-15] MEDS: AMIODARONE HCL 200 MG TAB PO SCH ×2 (10:00→22:00)
[2020-04-15] MEDS: AZITHROMYCIN 250 MG TAB PO SCH (10:00)
[2020-04-15] MEDS: METOPROLOL TARTRATE 25 MG TAB PO SCH ×2 (10:00→22:00)
[2020-04-15] MEDS: PRASUGREL HCL 10 MG TAB PO SCH (10:00)
[2020-04-15] MEDS: ASCORBIC ACID 1,000 MG TAB PO SCH (10:00)
[2020-04-15] MEDS: CHOLECALCIFEROL (VITD3) 2,000 UNIT CAP PO SCH (10:00)
[2020-04-15] MEDS: FAMOTIDINE (10MG/ML) 2ML VL IV SCH (10:22)
[2020-04-15] MEDS: DexAMETHasone SOD PHOS 10MG/1ML VIAL INJ IV SCH (10:22)
[2020-04-15] MEDS: CEFEPIME 1 GM in SODIUM CHL 0.9% 50 ML IV SCH (10:22)
[2020-04-15] MEDS: ENOXAPARIN SOD 40 MG/0.4 ML SYRINGE SC SCH (10:24)
[2020-04-15 16:00] VITALS: BP 87/61
[2020-04-15 17:00] VITALS: BP 60/35
[2020-04-15] MEDS: TAMSULOSIN HYDROCHLORIDE 0.4 MG CAP PO SCH (17:29)
[2020-04-15 17:39] VITALS: BP 115/50
[2020-04-15] MEDS: ALBUTEROL SULF HFA 90MCG INH 200DOSE IN PRN (20:47)
[2020-04-15] MEDS: ATORVASTATIN 20 MG TAB PO SCH (22:00)
[2020-04-16] VITALS (8 sets, daily range): BP systolic 91–112; BP diastolic 41–91
[2020-04-16] MEDS: SODIUM BICARBONATE 50ML VIAL 50 ML in D5W 5% 1,000 ML IV SCH ×2 (03:33→15:07)
[2020-04-16] MEDS: SUCRALFATE 1 GM/10 ML ORAL SUSP PO SCH ×4 (05:54→21:52)
[2020-04-16] MEDS: BUDESONIDE (INHALATION) 180 MCG IH IN SCH ×2 (06:20→22:00)
[2020-04-16 07:35] LABS: Albumin 2.4 g/dL (3.4-5.0); Potassium 3.6 mmol/L (3.5-5.1)
[2020-04-16 07:41] LABS: Bilirubin, Total 0.6 mg/dL (0.2-1.0); Total Protein 6.2 g/dL (6.4-8.2)
[2020-04-16] MEDS: CEFEPIME 1 GM in SODIUM CHL 0.9% 50 ML IV SCH (09:32)
[2020-04-16] MEDS: FAMOTIDINE (10MG/ML) 2ML VL IV SCH (09:32)
[2020-04-16] MEDS: ENOXAPARIN SOD 40 MG/0.4 ML SYRINGE SC SCH (09:33)
[2020-04-16] MEDS: METOPROLOL TARTRATE 25 MG TAB PO SCH ×2 (10:00→21:52)
[2020-04-16] MEDS: PRASUGREL HCL 10 MG TAB PO SCH (10:00)
[2020-04-16] MEDS: AMIODARONE HCL 200 MG TAB PO SCH ×2 (10:00→21:52)
[2020-04-16] MEDS: ZINC SULFATE 220mg CAP or TAB PO SCH (10:00)
[2020-04-16] MEDS: CHOLECALCIFEROL (VITD3) 2,000 UNIT CAP PO SCH (10:00)
[2020-04-16] MEDS: AZITHROMYCIN 250 MG TAB PO SCH (10:00)
[2020-04-16] MEDS: ASCORBIC ACID 1,000 MG TAB PO SCH (10:00)
[2020-04-16] MEDS ORDERED: NOREPINEPHRINE 8 MG/250ML KIT 250 ML IV SCH (12:00)
[2020-04-16] MEDS: TAMSULOSIN HYDROCHLORIDE 0.4 MG CAP PO SCH (17:09)
[2020-04-16] MEDS: ATORVASTATIN 20 MG TAB PO SCH (21:52)
[2020-04-17] MEDS: SODIUM BICARBONATE 50ML VIAL 50 ML in D5W 5% 1,000 ML IV SCH ×3 (01:22→21:15)
[2020-04-17] MEDS: SUCRALFATE 1 GM/10 ML ORAL SUSP PO SCH ×4 (06:28→21:44)
[2020-04-17 07:42] VITALS: BP 99/61
[2020-04-17 07:46] VITALS: BP 99/61
[2020-04-17] MEDS: CEFEPIME 1 GM in SODIUM CHL 0.9% 50 ML IV SCH (07:54)
[2020-04-17] MEDS: ENOXAPARIN SOD 40 MG/0.4 ML SYRINGE SC SCH (07:55)
[2020-04-17] MEDS: FAMOTIDINE (10MG/ML) 2ML VL IV SCH (07:55)
[2020-04-17] MEDS: BUDESONIDE (INHALATION) 180 MCG IH IN SCH ×3 (08:17→21:44)
[2020-04-17] MEDS: ASCORBIC ACID 1,000 MG TAB PO SCH (08:18)
[2020-04-17] MEDS: AZITHROMYCIN 250 MG TAB PO SCH (08:18)
[2020-04-17] MEDS: METOPROLOL TARTRATE 25 MG TAB PO SCH ×2 (08:18→21:45)
[2020-04-17] MEDS: ZINC SULFATE 220mg CAP or TAB PO SCH (08:18)
[2020-04-17] MEDS: PRASUGREL HCL 10 MG TAB PO SCH (08:18)
[2020-04-17] MEDS: AMIODARONE HCL 200 MG TAB PO SCH ×2 (08:18→21:44)
[2020-04-17] MEDS: CHOLECALCIFEROL (VITD3) 2,000 UNIT CAP PO SCH (08:18)
[2020-04-17 09:08] LABS: Calcium 7.7 mg/dL (8.5-10.1); Potassium 3.5 mmol/L (3.5-5.1)
[2020-04-17 10:15] LABS: BUN/Creatinine Ratio 52.1
[2020-04-17 15:49] VITALS: BP 89/54
[2020-04-17 16:00] VITALS: BP 89/54
[2020-04-17] MEDS: TAMSULOSIN HYDROCHLORIDE 0.4 MG CAP PO SCH (17:40)
[2020-04-17] MEDS: ALBUTEROL SULF HFA 90MCG INH 200DOSE IN PRN (21:44)
[2020-04-17] MEDS: ATORVASTATIN 20 MG TAB PO SCH (21:45)
[2020-04-17 23:54] VITALS: BP 100/60
[2020-04-18] MEDS: ALBUTEROL SULF HFA 90MCG INH 200DOSE IN PRN ×2 (04:49→08:25)
[2020-04-18] MEDS: SUCRALFATE 1 GM/10 ML ORAL SUSP PO SCH ×2 (06:58→11:09)
[2020-04-18] MEDS: FAMOTIDINE (10MG/ML) 2ML VL IV SCH (07:51)
[2020-04-18] MEDS: CEFEPIME 1 GM in SODIUM CHL 0.9% 50 ML IV SCH (07:51)
[2020-04-18] MEDS: METOPROLOL TARTRATE 25 MG TAB PO SCH (07:52)
[2020-04-18] MEDS: ZINC SULFATE 220mg CAP or TAB PO SCH (07:52)
[2020-04-18] MEDS: ENOXAPARIN SOD 40 MG/0.4 ML SYRINGE SC SCH (07:52)
[2020-04-18] MEDS: PRASUGREL HCL 10 MG TAB PO SCH (07:52)
[2020-04-18] MEDS: AMIODARONE HCL 200 MG TAB PO SCH (07:52)
[2020-04-18] MEDS: CHOLECALCIFEROL (VITD3) 2,000 UNIT CAP PO SCH (07:53)
[2020-04-18] MEDS: AZITHROMYCIN 250 MG TAB PO SCH (07:53)
[2020-04-18] MEDS: ASCORBIC ACID 1,000 MG TAB PO SCH (07:53)
[2020-04-18 08:00] VITALS: BP 126/64
[2020-04-18] MEDS: BUDESONIDE (INHALATION) 180 MCG IH IN SCH (08:25)
== END 2020-04-19 00:58 | DRG 871 ==
LOC: ER 12:33 → TELE 12:34 → TELE-EAST 04-10 18:17 → TELE-E-ADS 04-11 14:11
PROVIDERS: ADMIT Hospitalist; ATTEND Internal Medicine
PROC: XW033E5 Introduction of Remdesivir Anti-infective into Peripheral Vein, Percutaneous Approach, New Technology Group 5 (ICD-10-PCS; principal; 2020-04-11)
DX: A41.89 Other specified sepsis (principal); U07.1 COVID-19; J96.01 Acute respiratory failure with hypoxia; N17.0 Acute kidney failure with tubular necrosis; G92 Toxic encephalopathy; I21.A1 Myocardial infarction type 2; R65.21 Severe sepsis with septic shock; N13.8 Other obstructive and reflux uropathy; E44.0 Moderate protein-calorie malnutrition; I47.2 Ventricular tachycardia; E87.2 Acidosis; G93.1 Anoxic brain damage, not elsewhere classified; N13.6 Pyonephrosis; D68.59 Other primary thrombophilia; Z51.5 Encounter for palliative care; Z66 Do not resuscitate; N18.32 Chronic kidney disease, stage 3b; E11.22 Type 2 diabetes mellitus with diabetic chronic kidney disease; E78.5 Hyperlipidemia, unspecified; I12.9 Hypertensive chronic kidney disease with stage 1 through stage 4 chronic kidney disease, or unspecified chronic kidney disease; K21.9 Gastro-esophageal reflux disease without esophagitis; K29.70 Gastritis, unspecified, without bleeding; N32.0 Bladder-neck obstruction; B96.5 Pseudomonas (aeruginosa) (mallei) (pseudomallei) as the cause of diseases classified elsewhere; I25.10 Atherosclerotic heart disease of native coronary artery without angina pectoris; I44.0 Atrioventricular block, first degree; I48.0 Paroxysmal atrial fibrillation; M19.90 Unspecified osteoarthritis, unspecified site; N40.0 Benign prostatic hyperplasia without lower urinary tract symptoms; T38.0X5A Adverse effect of glucocorticoids and synthetic analogues, initial encounter; Z80.6 Family history of leukemia; Z83.3 Family history of diabetes mellitus; Z87.442 Personal history of urinary calculi; Z87.891 Personal history of nicotine dependence; Z95.5 Presence of coronary angioplasty implant and graft; Z88.1 Allergy status to other antibiotic agents; Z88.2 Allergy status to sulfonamides; Z88.8 Allergy status to other drugs, medicaments and biological substances
CPT/HCPCS: 36415; 36600; 70450; 71045; 71250; 74176; 80048; 80053; 80061; 80307; 81001; 82306; 82570; 82728; 82805; 83605; 83615; 83735; 83880; 83935; 84154; 84300; 84443; 84484; 85025; 85379; 85610; 85730; 86141; 87040; 87086; 87088; 87186; 87426; 87804; 92610; 93005; 93306; 94640; 96374; G0378; J1100; J2405; J3490